=== PATIENT | female | born 1990 | race Caucasian/White ===

== ENCOUNTER → 2019-04-02 | Outpatient (CLI) | payer OTHER ==
[~2019-04-02] MED LIST: CIPR500 PO; ONDA4 PO
== END ==
LOC: LAB SHORT 19:13 → LAB 19:13
PROVIDERS: Nurse Practitioner Family
DX: Z01.419 Encounter for gynecological examination (general) (routine) without abnormal findings (principal)
CPT/HCPCS: G0145